=== PATIENT | male | born 1995 | race African-American/Black ===

== ENCOUNTER 2016-06-14 10:57 | Emergency (ER) | payer SELFPAY ==
[2016-06-14 11:33] VITALS: BP 136/61; PULSE 88; TEMP 97.6
[2016-06-14 11:34] VITALS: BMI 19.5
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
== END 2016-06-14 11:54 | disposition home or self-care (01) ==
LOC: ED 10:57 → EDMC 11:54
DX: Z20.2 Contact with and (suspected) exposure to infections with a predominantly sexual mode of transmission (principal); F20.9 Schizophrenia, unspecified; F17.200 Nicotine dependence, unspecified, uncomplicated; Z79.899 Other long term (current) drug therapy
CPT/HCPCS: 99282